=== PATIENT | female | born 1995 | race Caucasian/White ===

== ENCOUNTER 2020-05-10 06:50 | Day surgery (SDC) | payer BC ==
[2020-05-09 14:48] VITALS: BMI 24.5
[2020-05-10 08:16] LABS: BHCG - Serum Negative (NEGATIVE); Pregs Control Bar Appear? YES (CONTROL BAR)
[2020-05-10 08:17] LABS: Pregs Control Background? CLEAR/WHITE (CLR/WHITE)
[2020-05-10] MEDS ORDERED: Midazolam HCl 2 mg/2 ml Vial ONE ×2 (08:39→08:57)
[2020-05-10] MEDS ORDERED: Ondansetron PF 4 MG/2 ML Vial ONE ×2 (08:40→09:51)
[2020-05-10] MEDS ORDERED: Fentanyl 100 MCG/2 ML VIAL ONE ×3 (08:57→10:30)
[2020-05-10] MEDS ORDERED: HYDROmorphone 0.5 MG/0.5 ML SYRINGE ONE (08:58)
[2020-05-10] MEDS ORDERED: Dexamethasone 20 MG/5 ML VIAL ONE (09:51)
[2020-05-10] MEDS ORDERED: PROPOFOL 200 MG/20 ML VIAL ONE (09:51)
== END 2020-05-10 10:00 | disposition home or self-care (01) ==
LOC: SDC 06:50
PROVIDERS: ATTEND Student in an Organized Health Care Education/Training Program
PROC: 0CTPXZZ Resection of Tonsils, External Approach (ICD-10-PCS; principal; 2020-05-10)
DX: J03.01 Acute recurrent streptococcal tonsillitis (principal); J35.01 Chronic tonsillitis; Z79.899 Other long term (current) drug therapy
CPT/HCPCS: 36415; 84703; 85014; 88304; J1100; J1170; J2250; J2405; J2704; J3010

== ENCOUNTER 2021-06-01 11:47 | Outpatient (CLI) | payer BC | END 2021-06-01 11:48 | disposition home or self-care (01) | LOC: SCSMRI 11:47 → BICMRI 11:48 | PROVIDERS: ATTEND Orthopaedic Surgery | DX: S83.511A Sprain of anterior cruciate ligament of right knee, initial encounter (principal); S83.241A Other tear of medial meniscus, current injury, right knee, initial encounter; S70.11XA Contusion of right thigh, initial encounter ==

== ENCOUNTER 2021-08-04 16:07 | Outpatient (CLI) | payer BC ==
[2021-08-04 16:40] LABS: #Eosinphils 0.1 10x3/uL (0.0-0.5); #Monocytes 0.4 10x3/uL (0.0-1.1); #Neutrophils 2.9 10x3/uL (1.5-8.4); %Basophils 0.6 % (0.0-2.0); %Eosinophils 0.7 % (0.0-6.0); %Lymphocytes 52.6 % (18.0-47.0); %Monocytes 6.1 % (0.0-10.0); %Neutrophils 39.6 % (40.0-75.0); Hemoglobin 13.1 g/dL (12.0-15.5); Mean Corpuscular HGB CONC 34.4 g/dL (32.0-36.0); Mean Corpuscular Hemoglobin 30.6 pg (27.0-33.0); Mean Platelet Volume 8.8 fl (7.4-10.4); Platelet Count 306 10x3/uL (150-450); RBC Distribution Width 11.9 % (11.5-14.5); Red Blood Cell (RBC) Count 4.28 10x6/uL (3.90-5.03); White Blood Cell (WBC) Count 7.2 10x3/uL (3.5-10.5)
[2021-08-04 17:05] LABS: BHCG - Serum Negative (NEGATIVE); Pregs Control Background? CLEAR/WHITE (CLR/WHITE); Pregs Control Bar Appear? YES (CONTROL BAR)
[2021-08-04 17:08] LABS: Anion Gap 13 mmol/L (10-20); BUN (Urea Nitrogen) 15 mg/dL (7.0-18.7); Calc. Creatinine Clearance 0 mL/min (70-130); Calcium 9.7 mg/dL (7.8-10.44); Carbon Dioxide 28 mmol/L (22-29); Chloride 102 mmol/L (98-107); Glucose 86 mg/dL (70-105); Sodium 139 mmol/L (136-145)
[2021-08-05 16:34] LABS: SARS-CoV-2 PCR by NAA Not Detected (NotDetected)
== END 2021-08-04 16:08 | disposition home or self-care (01) ==
LOC: LABBT 16:07
PROVIDERS: ATTEND Orthopaedic Surgery
DX: Z01.812 Encounter for preprocedural laboratory examination (principal); S83.241A Other tear of medial meniscus, current injury, right knee, initial encounter; S83.511A Sprain of anterior cruciate ligament of right knee, initial encounter; Z20.822 Contact with and (suspected) exposure to COVID-19
CPT/HCPCS: 80048; 84703; 85025; U0003; U0005

== ENCOUNTER 2021-08-09 06:00 | Observation (INO) | payer BC ==
[2021-08-08 09:04] VITALS: BMI 25.5
[2021-08-09] MEDS ORDERED: Vancomycin 1 GM/200 ML BAG ONE (06:08)
[2021-08-09] MEDS ORDERED: Fentanyl 100 MCG/2 ML VIAL ONE ×2 (06:46→09:45)
[2021-08-09] MEDS ORDERED: Midazolam HCl 2 mg/2 ml Vial ONE ×2 (06:46→07:50)
[2021-08-09] MEDS ORDERED: Sodium Chloride 0.9% 100 ML ONE (07:22)
[2021-08-09] MEDS ORDERED: CEFAZOLIN 2 GM VIAL ONE (07:22)
[2021-08-09] MEDS ORDERED: Acetaminophen 500 MG TAB PO PRN (07:54)
[2021-08-09] MEDS ORDERED: Methocarbamol 500 MG TAB PO PRN (07:54)
[2021-08-09] MEDS ORDERED: Milk Of Magnesia 30 ML UDCUP PO PRN (07:54)
[2021-08-09] MEDS ORDERED: HYDROcodone/Acetaminophen 7.5/325 mg Tablet PO PRN ×2 (07:54)
[2021-08-09] MEDS ORDERED: diphenhydrAMINE 50 MG CAP PO PRN (07:54)
[2021-08-09] MEDS ORDERED: Ondansetron PF 4 MG/2 ML Vial IVP PRN ×2 (07:54→08:45)
[2021-08-09] MEDS ORDERED: Bisacodyl 10 MG SUPP PR PRN (07:54)
[2021-08-09] MEDS ORDERED: traMADol HCl 50 MG TAB PO PRN ×3 (07:54→08:45)
[2021-08-09] MEDS ORDERED: fentaNYL Citrate/PF 100 MCG/2 ML SYRINGE ONE (07:55)
[2021-08-09] MEDS ORDERED: METHYLPHENIDATE HCL 20 MG PO PRN (07:57)
[2021-08-09] MEDS ORDERED: Calcium Carbonate 500 MG ChewTAB PO PRN (07:57)
[2021-08-09] MEDS ORDERED: Ropivacaine 0.2% 550 ML 550 ML NERVE BLCK SCH (08:45)
[2021-08-09] MEDS ORDERED: HYDROcodone/Acetaminophen 5/325 mg Tablet PO PRN (08:45)
[2021-08-09] MEDS ORDERED: Zolpidem Tartrate 5 MG TAB PO PRN (08:45)
[2021-08-09] MEDS ORDERED: Promethazine HCl 25 MG/ML VIAL IM PRN (08:45)
[2021-08-09] MEDS ORDERED: METHYLPHENIDATE HCL 36 MG PO SCH (09:00)
[2021-08-09] MEDS: Famotidine 20 MG TAB PO SCH ×2 (11:53→20:28)
[2021-08-09] MEDS: Dextrose 5 %-0.45 % NaCl 1,000 ML IV SCH ×2 (11:55→18:14)
[2021-08-09] MEDS: Azelastine 137 MCG/Spray 30 ML NS SCH (12:03)
[2021-08-09] MEDS: Docusate 100 MG CAP PO SCH ×2 (12:03→21:04)
[2021-08-09] MEDS: Fluticasone Propionate Nasal Spray 16 gm Bottle NASAL SCH (12:03)
[2021-08-09] MEDS: HYDROcodone/Acetaminophen 5/325 mg Tablet PO PRN ×3 (12:06→20:28)
[2021-08-09] MEDS: Ketorolac Tromethamine 30 MG/ML VIAL IVP SCH ×3 (12:07→23:37)
[2021-08-09] MEDS: CEFAZOLIN 2 GM in Sodium Chloride 0.9% 100 ML IVPB SCH ×2 (13:51→23:36)
[2021-08-09] MEDS ORDERED: Spironolactone 100 MG TAB PO SCH (21:00)
[2021-08-09] MEDS ORDERED: Bupropion 150 MG XL TAB PO SCH (21:00)
[2021-08-10] MEDS: Dextrose 5 %-0.45 % NaCl 1,000 ML IV SCH (04:19)
[2021-08-10] MEDS: HYDROcodone/Acetaminophen 5/325 mg Tablet PO PRN ×2 (05:36→10:39)
[2021-08-10] MEDS: Ketorolac Tromethamine 30 MG/ML VIAL IVP SCH (05:37)
[2021-08-10 07:38] VITALS: BP 112/74; TEMP 98.3
[2021-08-10] MEDS: Famotidine 20 MG TAB PO SCH (08:22)
[2021-08-10] MEDS: Fluticasone Propionate Nasal Spray 16 gm Bottle NASAL SCH (08:22)
[2021-08-10] MEDS: Docusate 100 MG CAP PO SCH (08:22)
[2021-08-10] MEDS: Azelastine 137 MCG/Spray 30 ML NS SCH (08:22)
== END 2021-08-10 12:15 | disposition home or self-care (01) ==
LOC: SDC 06:00 → SJJU 07:54
PROVIDERS: ADMIT Orthopaedic Surgery; ATTEND Orthopaedic Surgery
PROC: 0SBC4ZZ Excision of Right Knee Joint, Percutaneous Endoscopic Approach (ICD-10-PCS; principal; 2021-08-09)
PROC: 0MRN47Z Replacement of Right Knee Bursa and Ligament with Autologous Tissue Substitute, Percutaneous Endoscopic Approach (ICD-10-PCS; 2021-08-09)
PROC: 3E0T3BZ Introduction of Anesthetic Agent into Peripheral Nerves and Plexi, Percutaneous Approach (ICD-10-PCS; 2021-08-09)
DX: S83.511A Sprain of anterior cruciate ligament of right knee, initial encounter (principal); S83.241A Other tear of medial meniscus, current injury, right knee, initial encounter; Z79.899 Other long term (current) drug therapy; X50.0XXA Overexertion from strenuous movement or load, initial encounter; Y93.A9 Activity, other involving cardiorespiratory exercise
CPT/HCPCS: A4306; C1713; J1885; J2250; J2795; J3010; J3370; J3490; J7042

== ENCOUNTER 2021-08-11 23:01 | Emergency (ER) | payer BC | END 2021-08-12 00:48 | disposition home or self-care (01) | LOC: ERS 23:01 | DX: T85.695A Other mechanical complication of other nervous system device, implant or graft, initial encounter (principal) | CPT/HCPCS: 99283 ==